=== PATIENT | male | born 1985 | race African-American/Black ===

== ENCOUNTER 2021-06-03 03:57 | Emergency (ER) | payer MEDICAID ==
[~2021-06-03] VITALS: Ht 177.8 cm; Wt 73.0 kg
[2021-06-03] MEDS ORDERED: PANTOPRAZOLE SODIUM 40 MG/VIAL IV STA (05:50)
[2021-06-03] MEDS ORDERED: MAGNESIUM/ALUMINUM HYDROXIDE/SIMETHICONE 30ML UDC PO STA (05:50)
[2021-06-03] MEDS ORDERED: KETOROLAC 30MG/ML VIAL IV STA (05:50)
[2021-06-03] MEDS ORDERED: ONDANSETRON HCL 4MG/2ML INJ IV STA (05:50)
[2021-06-03] MEDS ORDERED: SODIUM CHLORIDE 0.9% 1,000 ML IV ONE (06:00)
[2021-06-03] MEDS ORDERED: MORPHINE SULFATE 4 MG/ML CPJ (NOT FOR IM USE) IV ONE ×3 (06:15→13:00)
[2021-06-03] MEDS ORDERED: DIATR MEGLU/DIATRIZOATE SOLN 30ML PO ONE (06:30)
[2021-06-03 06:35] LABS: BASOPHILS % 0.9 % (0.0-2.0); EOSINOPHILS % 7.2 % (0.0-5.0); HEMATOCRIT. 25.2 % (42.0-52.0); HEMOGLOBIN. 8.3 g/dL (14.0-18.0); LYMPHOCYTES % 27.5 % (20.0-50.0); MEAN CORPUSCULAR HEMOGLOBIN 26.7 pg (28.0-32.0); MEAN CORPUSCULAR VOLUME 80.8 fL (80.0-94.0); NEUTROPHILS % 54.4 % (40.0-76.0); PLATELET 484 x1000/uL (130-400); RED BLOOD CELL COUNT 3.11 mill/uL (4.7-6.1); RED CELL DISTRIBUTION WIDTH 20.8 % (11.6-14.6)
[2021-06-03 06:41] LABS: CHLORIDE 103 mEq/L (98-107)
[2021-06-03 06:45] LABS: ETHANOL BLOOD < 10 mg/dL
[2021-06-03] MEDS ORDERED: IOHEXOL-300 100 ML BOTTLE ONE (10:04)
[2021-06-03 12:04] LABS: CLARITY URINE CLEAR (CLEAR); COLOR URINE YELLOW (YELLOW); KETONES URINE NEGATIVE (NEGATIVE); LEUKOCYTE ESTERASE URINE NEGATIVE (NEGATIVE); NITRITE URINE NEGATIVE (NEGATIVE); OCCULT BLOOD URINE NEGATIVE (NEGATIVE); PROTEIN URINE TRACE (NEGATIVE); SPECIFIC GRAVITY URINE 1.027 (1.005-1.030)
[2021-06-03 12:18] LABS: *AMPHETAMINES SCREEN URINE NEGATIVE (NEGATIVE); *BARBITURATES SCREEN URINE NEGATIVE (NEGATIVE)
[2021-06-03 12:19] LABS: *BENZODIAZEPINES SCREEN URINE NEGATIVE (NEGATIVE); *COCAINE SCREEN URINE NEGATIVE (NEGATIVE); CANNABINOID URINE SCREEN NEGATIVE (NEGATIVE); METHADONE URINE SCREEN NEGATIVE (NEGATIVE); OPIATES URINE SCREEN PRESUMTIVE POSITIVE (NEGATIVE); PHENCYCLIDINE URINE SCREEN NEGATIVE (NEGATIVE)
[2021-06-03] MEDS ORDERED: HYDROCODONE/ACETAMINOPHEN 5/325MG TABLET PO ONE (17:30)
[2021-06-03 20:58] VITALS: BP 118/79
== END 2021-06-03 21:30 ==
LOC: ER 03:57
DX: R10.30 Lower abdominal pain, unspecified (principal); D64.9 Anemia, unspecified; R11.0 Nausea; F12.10 Cannabis abuse, uncomplicated; F15.10 Other stimulant abuse, uncomplicated; R56.9 Unspecified convulsions
CPT/HCPCS: 36415; 74177; 80053; 80305; 80320; 81003; 83605; 83690; 85025; 96361; 96374; 96375; 96376; 99285; C9113; J2270; J2405; J7030; Q9967; Z7610; Q9963; G0480